=== PATIENT | female | born 1945 | race Caucasian/White ===

== ENCOUNTER 2020-10-11 11:06 | Inpatient (IN) ==
[2020-10-11] MEDS ORDERED: levoFLOXacin 750 MG TABLET PO ONE (11:12)
[2020-10-11 12:40] LABS: Basophils % 0.2 %; Hematocrit 43.9 % (35.3-44.9); Hemoglobin 14.4 g/dL (11.5-15.4); Immature Granulocytes % 0.4 % (0-4); Lymphocytes # 1.2 K/mcL (0.6-4.6); Lymphocytes % 12.8 %; Mean Corpuscular HGB Conc 32.8 g/dL (31.6-35.5); Mean Corpuscular Hemoglobin 29.2 pg (28.0-33.3); Mean Platelet Volume 9.2 fL (9.4-12.4); Monocytes # 0.6 K/mcL (0.0-1.3); Monocytes % 6.8 %; Neutrophils # 7.3 K/mcL (1.6-8.9); Platelet Count 249 K/mcL (140-400); Red Blood Count 4.93 M/mcL (3.82-4.97); Red Cell Distribution Width 14.4 % (11.5-14.5); Segmented Neutrophils % 79.8 %; White Blood Count 9.1 K/mcL (4.3-11.1)
[2020-10-11 12:48] LABS: INR 1.2; Prothrombin Time 13.8 Seconds (9.4-12.1)
[2020-10-11 12:50] LABS: Activated Partial Thrombo Time 28.4 Seconds (26.0-36.0)
[2020-10-11 13:02] LABS: BUN/Creatinine Ratio 35 (6-26); Blood Urea Nitrogen 25 mg/dL (8-23); Carbon Dioxide 26 mEq/L (23-29); Chloride 95 mEq/L (98-107); Glucose 114 mg/dL (70-105); Potassium 3.3 mEq/L (3.5-5.1); Sodium 132 mEq/L (136-145); eGFR For African Americans > 60 (> 60); eGFR For Non-African Americans > 60 (> 60)
[2020-10-11 13:03] LABS: Alanine Aminotransferase 47 Units/L (7-52); Albumin 3.9 g/dL (3.5-5.7); Albumin/Globulin Ratio 1.1 (1.1-2.2); Alkaline Phosphatase 70 Units/L (34-104); Aspartate Amino Transferase 52 Units/L (13-39); Bilirubin,Direct 0.6 mg/dL (0.0-0.2); Bilirubin,Indirect 0.7 mg/dL (0.0-1.0); Bilirubin,Total 1.3 mg/dL (0.3-1.0); C-Reactive Protein 241 mg/L (Less than 10); Globulin 3.7 g/dL (2.4-3.5); Lactate Dehydrogenase 267 Units/L (140-271); Magnesium 2.2 mg/dL (1.6-2.6); Osmolality,Calculated 279 (280-300); Phosphorous 3.2 mg/dL (2.7-4.5); Total Protein 7.6 g/dL (6.4-8.9); Troponin I < 0.03 ng/mL (< 0.04)
[2020-10-11] MEDS ORDERED: Potassium Chloride Elixir 20 MEQ/15 ML UDC PO ONE (13:15)
[2020-10-11 13:21] LABS: Ferritin 1200 ng/mL (10-120)
[2020-10-11] MEDS ORDERED: Dexamethasone 4 MG/ML VIAL IVP ONE (13:33)
[2020-10-11] MEDS ORDERED: Isovue-370 500 ML BOTTLE IVP ONE ×2 (13:33→20:08)
[2020-10-11 14:17] LABS: Amorphous Sediment,Urine Few per hpf (None-Few); Bacteria,Urine Few per hpf (None-Few); Bilirubin,Urine Small (Negative); Blood,Urine Trace (Negative); Clarity,Urine Ex.Turbid (Clear); Color,Urine Yellow (Yellow); Glucose,Urine (UA) Normal (Normal); Hyaline Casts,Urine Few per lpf (None Seen); Ketones,Urine Trace mg/dL (Negative); Leukocyte Esterase,Urine Large (Negative); Mucus,Urine Few per lpf (None-Few); Nitrite,Urine Negative (Negative); Protein,Urine 70 mg/dL (Neg-Trace); Specific Gravity,Urine 1.029 (1.010-1.025); Squamous Epithelial Cell,Urine Moderate per hpf (None-Few); Transitional Epi Cells,Urine Few per hpf (None-Few); WBC,Urine 50-100 per hpf (0-3)
[2020-10-11] MEDS ORDERED: *HR* Heparin 5,000 UNIT/ML VIAL IVP ONE (14:53)
[2020-10-11] MEDS ORDERED: *HR* Heparin 5,000 UNIT/ML VIAL IVP PRN ×2 (14:53)
[2020-10-11] MEDS: Heparin 25,000UNIT/250ML 1/2NS 25,000 UNIT/250 ML IV.SOLN IVC SCH (15:29)
[2020-10-11 15:44] LABS: Hematocrit 41.6 % (35.3-44.9); Hemoglobin 13.8 g/dL (11.5-15.4); Mean Corpuscular HGB Conc 33.2 g/dL (31.6-35.5); Mean Corpuscular Hemoglobin 29.4 pg (28.0-33.3); Mean Corpuscular Volume 88.5 fL (83.0-100.0); Mean Platelet Volume 9.2 fL (9.4-12.4); Platelet Count 245 K/mcL (140-400); Red Cell Distribution Width 14.4 % (11.5-14.5); White Blood Count 8.5 K/mcL (4.3-11.1)
[2020-10-11 15:50] LABS: INR 1.2; Prothrombin Time 14.2 Seconds (9.4-12.1)
[2020-10-11 15:52] LABS: Heparin anti-factor XA UFH < 0.04 IU/mL (0.30-0.70)
[2020-10-11] MEDS ORDERED: Naloxone 0.4 MG/ML INJ IVP PRN (16:41)
[2020-10-11] MEDS ORDERED: Ondansetron 4 MG/2 ML VIAL IVP PRN (16:41)
[2020-10-11] MEDS: Loratadine 10 MG TABLET PO SCH (23:11)
[2020-10-11] MEDS: Furosemide 40 MG/4 ML VIAL IVP SCH (23:12)
[2020-10-11] MEDS: Ipratropium 1 PUFF INHALER IH SCH (23:51)
[2020-10-12] MEDS: Ipratropium 1 PUFF INHALER IH SCH ×6 (03:24→22:32)
[2020-10-12] MEDS: Acetaminophen 325 MG TABLET PO PRN ×2 (05:07→18:18)
[2020-10-12 07:46] LABS: D-Dimer 3358 ng/mLFEU (0-500)
[2020-10-12 07:47] LABS: Basophils % 0.1 %; Eosinophils % 0.1 %; Hematocrit 37.7 % (35.3-44.9); Hemoglobin 12.6 g/dL (11.5-15.4); Immature Granulocytes % 0.6 % (0-4); Lymphocytes # 1.2 K/mcL (0.6-4.6); Lymphocytes % 11.6 %; Mean Corpuscular HGB Conc 33.4 g/dL (31.6-35.5); Mean Corpuscular Hemoglobin 29.1 pg (28.0-33.3); Mean Corpuscular Volume 87.1 fL (83.0-100.0); Mean Platelet Volume 9.4 fL (9.4-12.4); Monocytes # 0.7 K/mcL (0.0-1.3); Monocytes % 6.8 %; Neutrophils # 8.2 K/mcL (1.6-8.9); Platelet Count 258 K/mcL (140-400); Red Blood Count 4.33 M/mcL (3.82-4.97); Red Cell Distribution Width 14.3 % (11.5-14.5); Segmented Neutrophils % 80.8 %; White Blood Count 10.2 K/mcL (4.3-11.1)
[2020-10-12] MEDS: Pantoprazole 40 MG VIAL IVP SCH (07:51)
[2020-10-12] MEDS: Furosemide 40 MG/4 ML VIAL IVP SCH (07:51)
[2020-10-12 07:53] LABS: Fibrinogen 538 mg/dL (169-393)
[2020-10-12 07:57] LABS: BUN/Creatinine Ratio 34 (6-26); Blood Urea Nitrogen 21 mg/dL (8-23); Calcium 8.7 mg/dL (8.6-10.3); Carbon Dioxide 24 mEq/L (23-29); Chloride 100 mEq/L (98-107); Glucose 116 mg/dL (70-105); Osmolality,Calculated 278 (280-300); Potassium 3.9 mEq/L (3.5-5.1); Sodium 132 mEq/L (136-145); eGFR For African Americans > 60 (> 60); eGFR For Non-African Americans > 60 (> 60)
[2020-10-12 07:59] LABS: Albumin 3.4 g/dL (3.5-5.7); Albumin/Globulin Ratio 1.1 (1.1-2.2); Bilirubin,Direct 0.2 mg/dL (0.0-0.2); Bilirubin,Indirect 0.5 mg/dL (0.0-1.0); Bilirubin,Total 0.7 mg/dL (0.3-1.0); Globulin 3.2 g/dL (2.4-3.5); Total Protein 6.6 g/dL (6.4-8.9)
[2020-10-12] MEDS ORDERED: Dexamethasone Sodium Phos/PF 10 MG/ML VIAL IVP SCH (09:00)
[2020-10-12] MEDS ORDERED: *HR* Metoprolol 5 MG/5 ML VIAL IVP ONE ×2 (10:32→10:36)
[2020-10-12] MEDS: Heparin 25,000UNIT/250ML 1/2NS 25,000 UNIT/250 ML IV.SOLN IVC SCH (12:08)
[2020-10-12] MEDS ORDERED: *HR* Heparin 5,000 UNIT/ML VIAL IVP PRN ×2 (16:07→16:08)
[2020-10-12] MEDS ORDERED: Heparin 25,000UNIT/250ML 1/2NS 25,000 UNIT/250 ML IV.SOLN IVC SCH (16:08)
[2020-10-12] MEDS ORDERED: Remdesivir 200 MG in 0.9 % Sodium Chloride 100 ML IVPB ONE (18:00)
[2020-10-12] MEDS: Apixaban 5 MG TABLET PO SCH (18:18)
[2020-10-12] MEDS: Loratadine 10 MG TABLET PO SCH (21:01)
[2020-10-13 01:46] LABS: Basophils % 0.2 %; Eosinophils % 0.1 %; Hematocrit 39.6 % (35.3-44.9); Immature Granulocytes % 0.8 % (0-4); Lymphocytes % 7.9 %; Mean Corpuscular HGB Conc 32.8 g/dL (31.6-35.5); Mean Corpuscular Hemoglobin 28.6 pg (28.0-33.3); Mean Corpuscular Volume 87.2 fL (83.0-100.0); Mean Platelet Volume 9.3 fL (9.4-12.4); Monocytes # 0.7 K/mcL (0.0-1.3); Monocytes % 5.7 %; Neutrophils # 10.2 K/mcL (1.6-8.9); Platelet Count 288 K/mcL (140-400); Red Blood Count 4.54 M/mcL (3.82-4.97); Red Cell Distribution Width 14.5 % (11.5-14.5); Segmented Neutrophils % 85.3 %
[2020-10-13 02:00] LABS: INR 1.6; Prothrombin Time 18.7 Seconds (9.4-12.1)
[2020-10-13 02:05] LABS: Alanine Aminotransferase 47 Units/L (7-52); Albumin 3.3 g/dL (3.5-5.7); Albumin/Globulin Ratio 0.9 (1.1-2.2); Alkaline Phosphatase 57 Units/L (34-104); Aspartate Amino Transferase 46 Units/L (13-39); BUN/Creatinine Ratio 33 (6-26); Bilirubin,Total 0.6 mg/dL (0.3-1.0); Blood Urea Nitrogen 19 mg/dL (8-23); Calcium 8.5 mg/dL (8.6-10.3); Carbon Dioxide 25 mEq/L (23-29); Chloride 98 mEq/L (98-107); Globulin 3.5 g/dL (2.4-3.5); Glucose 119 mg/dL (70-105); Osmolality,Calculated 279 (280-300); Potassium 3.7 mEq/L (3.5-5.1); Sodium 133 mEq/L (136-145); Total Protein 6.8 g/dL (6.4-8.9); eGFR For African Americans > 60 (> 60); eGFR For Non-African Americans > 60 (> 60)
[2020-10-13] MEDS: Ipratropium 1 PUFF INHALER IH SCH ×6 (03:28→23:53)
[2020-10-13] MEDS: Apixaban 5 MG TABLET PO SCH ×2 (06:33→18:06)
[2020-10-13] MEDS: Dexamethasone Sodium Phos/PF 10 MG/ML VIAL IVP SCH (10:51)
[2020-10-13] MEDS: Furosemide 20 MG/2 ML VIAL IVP SCH (10:52)
[2020-10-13] MEDS: Pantoprazole 40 MG VIAL IVP SCH (10:52)
[2020-10-13] MEDS: Acetaminophen 325 MG TABLET PO PRN (11:20)
[2020-10-13] MEDS: Remdesivir 100 MG in 0.9 % Sodium Chloride 100 ML IVPB SCH (18:06)
[2020-10-13] MEDS: Loratadine 10 MG TABLET PO SCH (20:53)
[2020-10-14 03:25] LABS: Basophils % 0.3 %; Hematocrit 42.6 % (35.3-44.9); Hemoglobin 13.8 g/dL (11.5-15.4); Immature Granulocytes % 0.9 % (0-4); Lymphocytes % 10.7 %; Mean Corpuscular HGB Conc 32.4 g/dL (31.6-35.5); Mean Corpuscular Hemoglobin 28.4 pg (28.0-33.3); Mean Corpuscular Volume 87.7 fL (83.0-100.0); Mean Platelet Volume 9.3 fL (9.4-12.4); Monocytes # 0.9 K/mcL (0.0-1.3); Monocytes % 9.8 %; Platelet Count 358 K/mcL (140-400); Red Blood Count 4.86 M/mcL (3.82-4.97); Red Cell Distribution Width 14.4 % (11.5-14.5); Segmented Neutrophils % 78.3 %
[2020-10-14 03:28] LABS: INR 1.5; Prothrombin Time 17.1 Seconds (9.4-12.1)
[2020-10-14 03:33] LABS: Neutrophils # 7.1 K/mcL (1.6-8.9)
[2020-10-14 03:43] LABS: Alanine Aminotransferase 53 Units/L (7-52); Albumin 3.4 g/dL (3.5-5.7); Albumin/Globulin Ratio 0.9 (1.1-2.2); Alkaline Phosphatase 63 Units/L (34-104); Aspartate Amino Transferase 44 Units/L (13-39); BUN/Creatinine Ratio 40 (6-26); Bilirubin,Total 0.6 mg/dL (0.3-1.0); Blood Urea Nitrogen 19 mg/dL (8-23); Calcium 8.8 mg/dL (8.6-10.3); Carbon Dioxide 24 mEq/L (23-29); Chloride 99 mEq/L (98-107); Globulin 3.6 g/dL (2.4-3.5); Glucose 129 mg/dL (70-105); Osmolality,Calculated 280 (280-300); Potassium 3.6 mEq/L (3.5-5.1); Sodium 133 mEq/L (136-145); eGFR For African Americans > 60 (> 60); eGFR For Non-African Americans > 60 (> 60)
[2020-10-14] MEDS: Ipratropium 1 PUFF INHALER IH SCH ×6 (04:06→23:48)
[2020-10-14 04:38] LABS: Platelet Estimate Normal (Normal)
[2020-10-14] MEDS: Apixaban 5 MG TABLET PO SCH ×2 (05:49→16:16)
[2020-10-14] MEDS: Dexamethasone Sodium Phos/PF 10 MG/ML VIAL IVP SCH (08:13)
[2020-10-14] MEDS: Furosemide 20 MG/2 ML VIAL IVP SCH (08:13)
[2020-10-14] MEDS ORDERED: Furosemide 20 MG/2 ML VIAL IVP ONE (13:33)
[2020-10-14] MEDS: Remdesivir 100 MG in 0.9 % Sodium Chloride 100 ML IVPB SCH (16:17)
[2020-10-14] MEDS: Acetaminophen 325 MG TABLET PO PRN (18:38)
[2020-10-14] MEDS: Loratadine 10 MG TABLET PO SCH (19:26)
[2020-10-15] MEDS ORDERED: Melatonin 3 MG TABLET PO ONE (00:06)
[2020-10-15] MEDS: Ipratropium 1 PUFF INHALER IH SCH ×6 (04:05→23:01)
[2020-10-15] MEDS: Apixaban 5 MG TABLET PO SCH ×2 (05:52→17:04)
[2020-10-15 06:14] LABS: Basophils # 0.1 K/mcL (0.0-0.2); Basophils % 0.6 %; Eosinophils % 0.2 %; Hematocrit 43.3 % (35.3-44.9); Hemoglobin 14.5 g/dL (11.5-15.4); Immature Granulocytes % 1.6 % (0-4); Mean Corpuscular HGB Conc 33.5 g/dL (31.6-35.5); Mean Corpuscular Hemoglobin 29.6 pg (28.0-33.3); Mean Corpuscular Volume 88.4 fL (83.0-100.0); Mean Platelet Volume 9.4 fL (9.4-12.4); Monocytes # 1.1 K/mcL (0.0-1.3); Monocytes % 10.6 %; Neutrophils # 7.1 K/mcL (1.6-8.9); Platelet Count 413 K/mcL (140-400); Red Cell Distribution Width 14.3 % (11.5-14.5); White Blood Count 10.4 K/mcL (4.3-11.1)
[2020-10-15 06:15] LABS: INR 1.6; Prothrombin Time 17.7 Seconds (9.4-12.1)
[2020-10-15 06:32] LABS: Platelet Estimate Normal (Normal); Reactive Lymphocytes Present (Not Present)
[2020-10-15 06:36] LABS: Alanine Aminotransferase 57 Units/L (7-52); Albumin 3.4 g/dL (3.5-5.7); Albumin/Globulin Ratio 0.9 (1.1-2.2); Alkaline Phosphatase 62 Units/L (34-104); Aspartate Amino Transferase 38 Units/L (13-39); BUN/Creatinine Ratio 42 (6-26); Bilirubin,Total 0.6 mg/dL (0.3-1.0); Blood Urea Nitrogen 21 mg/dL (8-23); Carbon Dioxide 24 mEq/L (23-29); Chloride 96 mEq/L (98-107); Globulin 3.7 g/dL (2.4-3.5); Glucose 107 mg/dL (70-105); Osmolality,Calculated 277 (280-300); Phosphorous 3.1 mg/dL (2.7-4.5); Potassium 3.2 mEq/L (3.5-5.1); Sodium 132 mEq/L (136-145); Total Protein 7.1 g/dL (6.4-8.9); eGFR For African Americans > 60 (> 60); eGFR For Non-African Americans > 60 (> 60)
[2020-10-15] MEDS: Furosemide 40 MG/4 ML VIAL IVP SCH (08:06)
[2020-10-15] MEDS: Acetaminophen 325 MG TABLET PO PRN ×2 (08:06→20:03)
[2020-10-15] MEDS: Dexamethasone Sodium Phos/PF 10 MG/ML VIAL IVP SCH (08:06)
[2020-10-15] MEDS: Remdesivir 100 MG in 0.9 % Sodium Chloride 100 ML IVPB SCH (17:53)
[2020-10-15] MEDS: Loratadine 10 MG TABLET PO SCH (20:04)
[2020-10-16 03:25] LABS: Basophils # 0.1 K/mcL (0.0-0.2); Basophils % 0.4 %; Eosinophils % 0.2 %; Hematocrit 42.6 % (35.3-44.9); Immature Granulocytes % 1.6 % (0-4); Lymphocytes % 16.5 %; Mean Corpuscular HGB Conc 32.9 g/dL (31.6-35.5); Mean Corpuscular Hemoglobin 28.9 pg (28.0-33.3); Mean Platelet Volume 8.9 fL (9.4-12.4); Monocytes # 1.3 K/mcL (0.0-1.3); Monocytes % 10.8 %; Neutrophils # 8.3 K/mcL (1.6-8.9); Platelet Count 498 K/mcL (140-400); Red Blood Count 4.84 M/mcL (3.82-4.97); Red Cell Distribution Width 14.2 % (11.5-14.5); Segmented Neutrophils % 70.5 %; White Blood Count 11.8 K/mcL (4.3-11.1)
[2020-10-16 03:28] LABS: INR 1.5; Prothrombin Time 17.3 Seconds (9.4-12.1)
[2020-10-16 03:46] LABS: Alanine Aminotransferase 51 Units/L (7-52); Albumin 3.3 g/dL (3.5-5.7); Alkaline Phosphatase 59 Units/L (34-104); Aspartate Amino Transferase 29 Units/L (13-39); BUN/Creatinine Ratio 46 (6-26); Bilirubin,Total 0.6 mg/dL (0.3-1.0); Blood Urea Nitrogen 21 mg/dL (8-23); Calcium 8.6 mg/dL (8.6-10.3); Carbon Dioxide 24 mEq/L (23-29); Chloride 99 mEq/L (98-107); Globulin 3.4 g/dL (2.4-3.5); Glucose 110 mg/dL (70-105); Osmolality,Calculated 280 (280-300); Potassium 3.8 mEq/L (3.5-5.1); Sodium 133 mEq/L (136-145); Total Protein 6.7 g/dL (6.4-8.9); eGFR For African Americans > 60 (> 60); eGFR For Non-African Americans > 60 (> 60)
[2020-10-16] MEDS: Ipratropium 1 PUFF INHALER IH SCH ×6 (04:00→22:53)
[2020-10-16 04:11] LABS: Platelet Estimate Increased (Normal); Reactive Lymphocytes Present (Not Present)
[2020-10-16] MEDS: Apixaban 5 MG TABLET PO SCH ×2 (05:24→18:27)
[2020-10-16] MEDS: Dexamethasone Sodium Phos/PF 10 MG/ML VIAL IVP SCH (07:58)
[2020-10-16] MEDS: Furosemide 40 MG/4 ML VIAL IVP SCH (07:59)
[2020-10-16] MEDS: Remdesivir 100 MG in 0.9 % Sodium Chloride 100 ML IVPB SCH (17:27)
[2020-10-16] MEDS: Loratadine 10 MG TABLET PO SCH (22:41)
[2020-10-17] MEDS: Ipratropium 1 PUFF INHALER IH SCH ×6 (03:33→23:26)
[2020-10-17] MEDS: Apixaban 5 MG TABLET PO SCH ×2 (06:40→18:05)
[2020-10-17 08:00] LABS: Basophils # 0.1 K/mcL (0.0-0.2); Basophils % 0.9 %; Eosinophils # 0.2 K/mcL (0.0-0.6); Hematocrit 43.7 % (35.3-44.9); Hemoglobin 14.7 g/dL (11.5-15.4); Immature Granulocytes % 3.5 % (0-4); Lymphocytes # 2.3 K/mcL (0.6-4.6); Lymphocytes % 15.2 %; Mean Corpuscular HGB Conc 33.6 g/dL (31.6-35.5); Mean Corpuscular Volume 86.2 fL (83.0-100.0); Monocytes # 1.3 K/mcL (0.0-1.3); Monocytes % 8.4 %; Neutrophils # 10.9 K/mcL (1.6-8.9); Platelet Count 545 K/mcL (140-400); Red Blood Count 5.07 M/mcL (3.82-4.97); Red Cell Distribution Width 14.6 % (11.5-14.5); White Blood Count 15.3 K/mcL (4.3-11.1)
[2020-10-17 08:27] LABS: BUN/Creatinine Ratio 44 (6-26); Blood Urea Nitrogen 21 mg/dL (8-23); Carbon Dioxide 26 mEq/L (23-29); Chloride 100 mEq/L (98-107); Glucose 87 mg/dL (70-105); Osmolality,Calculated 282 (280-300); Phosphorous 3.4 mg/dL (2.7-4.5); Sodium 135 mEq/L (136-145); eGFR For African Americans > 60 (> 60); eGFR For Non-African Americans > 60 (> 60)
[2020-10-17] MEDS: Dexamethasone Sodium Phos/PF 10 MG/ML VIAL IVP SCH (08:47)
[2020-10-17] MEDS ORDERED: Furosemide 40 MG/4 ML VIAL IVP ONE (15:38)
[2020-10-17] MEDS ORDERED: Melatonin 3 MG TABLET PO ONE (22:28)
[2020-10-17] MEDS: Loratadine 10 MG TABLET PO SCH (22:38)
[2020-10-18] MEDS: Ipratropium 1 PUFF INHALER IH SCH ×6 (03:50→23:53)
[2020-10-18 06:32] LABS: Basophils # 0.1 K/mcL (0.0-0.2); Basophils % 0.9 %; Eosinophils # 0.2 K/mcL (0.0-0.6); Eosinophils % 1.6 %; Hematocrit 44.9 % (35.3-44.9); Hemoglobin 14.9 g/dL (11.5-15.4); Immature Granulocytes % 4.8 % (0-4); Lymphocytes # 2.4 K/mcL (0.6-4.6); Lymphocytes % 16.7 %; Mean Corpuscular HGB Conc 33.2 g/dL (31.6-35.5); Mean Corpuscular Hemoglobin 29.2 pg (28.0-33.3); Mean Platelet Volume 8.8 fL (9.4-12.4); Monocytes # 1.2 K/mcL (0.0-1.3); Monocytes % 8.1 %; Platelet Count 569 K/mcL (140-400); Red Cell Distribution Width 14.5 % (11.5-14.5); Segmented Neutrophils % 67.9 %; White Blood Count 14.7 K/mcL (4.3-11.1)
[2020-10-18] MEDS: Apixaban 5 MG TABLET PO SCH ×2 (06:59→17:05)
[2020-10-18 07:00] LABS: BUN/Creatinine Ratio 40 (6-26); Blood Urea Nitrogen 21 mg/dL (8-23); Carbon Dioxide 26 mEq/L (23-29); Chloride 98 mEq/L (98-107); Glucose 111 mg/dL (70-105); Osmolality,Calculated 282 (280-300); Sodium 134 mEq/L (136-145); eGFR For African Americans > 60 (> 60); eGFR For Non-African Americans > 60 (> 60)
[2020-10-18] MEDS: Dexamethasone Sodium Phos/PF 10 MG/ML VIAL IVP SCH (08:43)
[2020-10-18] MEDS: Loratadine 10 MG TABLET PO SCH (19:43)
[2020-10-18] MEDS: Acetaminophen 325 MG TABLET PO PRN (19:43)
[2020-10-19] MEDS: Ipratropium 1 PUFF INHALER IH SCH ×6 (04:01→23:24)
[2020-10-19] MEDS: Apixaban 5 MG TABLET PO SCH ×2 (05:48→18:42)
[2020-10-19 07:01] LABS: Hematocrit 44.5 % (35.3-44.9); Hemoglobin 14.7 g/dL (11.5-15.4); Mean Corpuscular Hemoglobin 29.5 pg (28.0-33.3); Mean Corpuscular Volume 89.4 fL (83.0-100.0); Mean Platelet Volume 8.9 fL (9.4-12.4); Platelet Count 559 K/mcL (140-400); Red Blood Count 4.98 M/mcL (3.82-4.97); Red Cell Distribution Width 14.6 % (11.5-14.5); White Blood Count 17.8 K/mcL (4.3-11.1)
[2020-10-19 07:20] LABS: BUN/Creatinine Ratio 40 (6-26); Blood Urea Nitrogen 19 mg/dL (8-23); Calcium 8.9 mg/dL (8.6-10.3); Carbon Dioxide 26 mEq/L (23-29); Chloride 97 mEq/L (98-107); Glucose 90 mg/dL (70-105); Osmolality,Calculated 278 (280-300); Potassium 3.8 mEq/L (3.5-5.1); Sodium 133 mEq/L (136-145); eGFR For African Americans > 60 (> 60); eGFR For Non-African Americans > 60 (> 60)
[2020-10-19] MEDS ORDERED: dexAMETHasone 4 MG TABLET PO SCH (09:00)
[2020-10-19] MEDS ORDERED: Pantoprazole 40 MG VIAL IVP SCH (12:15)
[2020-10-19] MEDS: Loratadine 10 MG TABLET PO SCH (20:12)
[2020-10-20] MEDS: Ipratropium 1 PUFF INHALER IH SCH ×6 (03:42→23:33)
[2020-10-20] MEDS: Apixaban 5 MG TABLET PO SCH ×2 (05:01→17:48)
[2020-10-20 06:13] LABS: Hematocrit 41.8 % (35.3-44.9); Mean Corpuscular HGB Conc 33.5 g/dL (31.6-35.5); Mean Corpuscular Hemoglobin 29.4 pg (28.0-33.3); Mean Corpuscular Volume 87.6 fL (83.0-100.0); Mean Platelet Volume 8.8 fL (9.4-12.4); Platelet Count 552 K/mcL (140-400); Red Blood Count 4.77 M/mcL (3.82-4.97); Red Cell Distribution Width 14.3 % (11.5-14.5); White Blood Count 16.3 K/mcL (4.3-11.1)
[2020-10-20 06:38] LABS: Phosphorous 3.2 mg/dL (2.7-4.5)
[2020-10-20 06:39] LABS: BUN/Creatinine Ratio 33 (6-26); Blood Urea Nitrogen 13 mg/dL (8-23); Calcium 8.7 mg/dL (8.6-10.3); Carbon Dioxide 25 mEq/L (23-29); Chloride 96 mEq/L (98-107); Glucose 107 mg/dL (70-105); Osmolality,Calculated 273 (280-300); Potassium 3.6 mEq/L (3.5-5.1); Sodium 131 mEq/L (136-145); eGFR For African Americans > 60 (> 60); eGFR For Non-African Americans > 60 (> 60)
[2020-10-20] MEDS: Acetaminophen 325 MG TABLET PO PRN (07:30)
[2020-10-20] MEDS ORDERED: dexAMETHasone 4 MG TABLET PO SCH (09:00)
[2020-10-20] MEDS: Dexamethasone Sodium Phos/PF 10 MG/ML VIAL IVP SCH (09:22)
[2020-10-20] MEDS: Loratadine 10 MG TABLET PO SCH (20:00)
[2020-10-21] MEDS: Ipratropium 1 PUFF INHALER IH SCH ×3 (03:45→13:01)
[2020-10-21] MEDS: Apixaban 5 MG TABLET PO SCH (05:09)
[2020-10-21] MEDS: Dexamethasone Sodium Phos/PF 10 MG/ML VIAL IVP SCH (07:45)
[2020-10-21 08:10] VITALS: BP 153/91
== END 2020-10-21 14:59 | disposition home or self-care (01) | DRG 177 ==
LOC: EMEROOARM 11:06 → 2NENU 11:06 → SUATTDRO 17:41 → 2NENU 18:55 → SUATTDRO 10-12 18:49 → 2NENU 10-13 15:04 → 3BNU 10-20 16:43
PROVIDERS: ADMIT Pharmacist; ATTEND Internal Medicine